=== PATIENT | female | born 1975 | race Caucasian/White ===

== ENCOUNTER 2022-03-29 09:30 | Outpatient (CLI) | payer OTHER, SELFPAY ==
--- NOTE | 2022-03-29 09:45 | CRLHL7_ITS ---
For Patients: As a result of the Century Cures Act, medical imaging exams and procedure reports are released immediately into your electronic medical record. You may view this report before your referring provider. If you have questions, please contact your health care provider. BILATERAL SCREENING MAMMOGRAM WITH COMPUTER-AIDED DETECTION TECHNIQUE: CC and MLO views were obtained. These mammographic images have been obtained using full-field digital technique. These mammographic images were interpreted with the benefit of computer-aided detection. COMPARISON FILM: 09/27/20; 09/25/18; 08/15/17. FINDINGS: There are scattered areas of fibroglandular density. IMPRESSION: There is no radiographic evidence for malignancy. ASSESSMENT: BI-RADS Category 1: Negative RECOMMENDATION: Routine screening mammogram in 1 year. A lay language report of this examination will be provided to the patient. KAREEM GUEVARA M.D. Diagnostic Radiologist [email or web address] Transcribed: 5:[address]/Dictated by: Kareem Guevara MD @ 03/29/2022 10:41:00 AM (Electronically Signed)
== END 2022-03-29 09:31 | disposition home or self-care (01) ==
LOC: MAMMO 09:30
PROVIDERS: PCP Family Medicine; Visit Provider Family Medicine
DX: Z12.31 Encounter for screening mammogram for malignant neoplasm of breast (principal)
CPT/HCPCS: 77067

== ENCOUNTER 2022-12-11 08:09 | Outpatient (CLI) | payer OTHER, SELFPAY | END 2022-12-11 08:10 | disposition home or self-care (01) | PROVIDERS: PCP Family Medicine; Visit Provider Family Medicine | DX: Z00.00 Encounter for general adult medical examination without abnormal findings (principal); E78.5 Hyperlipidemia, unspecified; E66.9 Obesity, unspecified; G47.00 Insomnia, unspecified; N92.0 Excessive and frequent menstruation with regular cycle | CPT/HCPCS: 80053; 80061 ==

== ENCOUNTER 2023-01-17 16:16 | Outpatient (CLI) | payer OTHER, SELFPAY | END 2023-01-17 16:17 | disposition home or self-care (01) | LOC: NFLDREF 01-20 19:46 | PROVIDERS: PCP Family Medicine; Referring Provider Family Medicine; Visit Provider Family Medicine | DX: E83.52 Hypercalcemia (principal) | CPT/HCPCS: 82310; 83970 ==

== ENCOUNTER 2023-05-15 15:24 | Outpatient (CLI) | payer OTHER, SELFPAY ==
--- NOTE | 2023-05-15 15:40 | MM_ITS ---
INDICATION: SCREENING MAMMOGRAPHY. COMPARISON: 03/29/2022, 09/27/2020, 09/25/2018 TECHNIQUE: 3D BILATERAL DIGITAL TOMOSYNTHESIS MAMMOGRAM WITH COMPUTER ASSISTED DETECTION BREAST DENSITY: HETEROGENEOUSLY DENSE FINDINGS: NO SUSPICIOUS MASSES ARE PRESENT BILATERALLY. NO ARCHITECTURAL DISTORTION. NO ADENOPATHY OR SUSPICIOUS CALCIFICATIONS. IMPRESSION: NO EVIDENCE OF MALIGNANCY. RECOMMENDATIONS: ANNUAL BILATERAL SCREENING MAMMOGRAPHY. BI-RADS CATEGORY 1. NEGATIVE..
== END 2023-05-15 15:25 | disposition home or self-care (01) ==
LOC: MAMMO 15:25
PROVIDERS: PCP Family Medicine; Visit Provider Family Medicine
DX: Z12.31 Encounter for screening mammogram for malignant neoplasm of breast (principal); R92.2 Inconclusive mammogram
CPT/HCPCS: 77063; 77067

== ENCOUNTER 2023-11-30 08:04 | Outpatient (CLI) | payer OTHER, SELFPAY | END 2023-11-30 08:05 | disposition home or self-care (01) | PROVIDERS: PCP Family Medicine; Visit Provider Family Medicine | DX: Z00.00 Encounter for general adult medical examination without abnormal findings (principal); E83.52 Hypercalcemia; E78.5 Hyperlipidemia, unspecified; E66.9 Obesity, unspecified; R53.83 Other fatigue | CPT/HCPCS: 80053; 80061; 83970; 84443 ==

== ENCOUNTER 2024-07-02 08:46 | Outpatient (CLI) | payer OTHER, SELFPAY ==
[2024-07-04 04:31] LABS: HPV Source Cervix; HPV, High Risk by TMA Not Detected
== END 2024-07-02 08:47 | disposition home or self-care (01) ==
PROVIDERS: PCP Family Medicine; Visit Provider Obstetrics & Gynecology
DX: E78.5 Hyperlipidemia, unspecified (principal); Z12.4 Encounter for screening for malignant neoplasm of cervix; Z11.51 Encounter for screening for human papillomavirus (HPV); Z13.1 Encounter for screening for diabetes mellitus
CPT/HCPCS: 80061; 82947; 87624; 87625; 88141; 88142

== ENCOUNTER 2024-07-21 08:59 | Outpatient (CLI) | payer OTHER, SELFPAY ==
--- NOTE | 2024-07-21 09:15 | CRLHL7_ITS ---
For Patients: As a result of the Century Cures Act, medical imaging exams and procedure reports are released immediately into your electronic medical record. You may view this report before your referring provider. If you have questions, please contact your health care provider. INDICATION: BILATERAL SCREENING MAMMOGRAM, ASYMPTOMATIC 48 Y/O FEMALE COMPARISON: 05/15/23, 03/29/22, 09/27/20 TECHNIQUE: CC and MLO views were obtained. These mammographic images have been obtained using full-field digital technique. These mammographic images were interpreted with the benefit of computer aided detection and tomosynthesis. BREAST COMPOSITION: There are scattered areas of fibroglandular density. FINDINGS: No suspicious findings. ASSESSMENT: BI-RADS 1 Negative RECOMMENDATION: Annual screening mammogram. A lay language report of this examination will be provided to the patient. Dictated by: Kareem Valladares MD @ 07/22/2024 11:16:20 (Electronically Signed)
== END 2024-07-21 09:00 | disposition home or self-care (01) ==
LOC: MAMMO 08:59
PROVIDERS: PCP Family Medicine; Visit Provider Obstetrics & Gynecology
DX: Z12.31 Encounter for screening mammogram for malignant neoplasm of breast (principal)
CPT/HCPCS: 77063; 77067

== ENCOUNTER 2025-01-27 08:05 | Outpatient (CLI) | payer OTHER, SELFPAY | END 2025-01-27 08:06 | disposition home or self-care (01) | PROVIDERS: PCP Family Medicine; Visit Provider Family Medicine | DX: E78.5 Hyperlipidemia, unspecified (principal); E83.52 Hypercalcemia; E66.9 Obesity, unspecified; Z68.32 Body mass index [BMI] 32.0-32.9, adult | CPT/HCPCS: 80048; 80061; 83970 ==